=== PATIENT | female | born 1975 | race Caucasian/White ===

== ENCOUNTER 2020-12-21 23:19 | Emergency (ER) | payer BC, SELFPAY ==
[2020-07-26 07:43] VITALS: BMI 29.2
[2020-12-21 23:19] VITALS: BP 137/84; PULSE 83; RESP 16; TEMP 36.4; O2SAT 99; BMI 29.2
--- NOTE | 2020-12-21 23:33 | RAD_ITS ---
STUDY: X-RAY - RIGHT ANKLE REASON FOR EXAM: Female, 45 years old. injury and pain TECHNIQUE: 3 view(s) of the ankle. COMPARISON: x-ray tibia and fibula. FINDINGS: Normal visualized distal tibia and fibula. Normal medial and lateral malleoli. Normal tibiotalar articulation. As seen on oblique view, there is suggestion of mild widening of the distal tibial-fibular interspace, which may represent a sprain of interosseous alignment.. Normal visualized talus and calcaneus. The visualized subtalar, talonavicular, calcaneocuboid and tarsal articulations are normal. There is nonspecific soft tissue swelling. There are there is soft tissue prominence overlying the anterior aspect of the tibiotalar articulation, suggesting a joint effusion. RAD/Ankle min 3 Views IMPRESSION: Suspected joint effusion. Suspect a sprain of the interosseous ligament, with minimal widening of the distal tibial-fibular interspace. No demonstrated fracture or dislocation. Electronically Signed: Aldo Loza MD at 0:20 EDT , Service support ,
--- NOTE | 2020-12-21 23:41 | RAD_ITS ---
STUDY: X-RAY - RIGHT TIBIA AND FIBULA REASON FOR EXAM: Female, 45 years old. injury and pain TECHNIQUE: 2 view(s) of the tibia and fibula were obtained. COMPARISON: X-ray ankle. FINDINGS: Normal visualized tibia. There are faint oblique curvilinear lucencies overlying the proximal most fibular shaft. Finding is suspicious for a nondisplaced, possibly incomplete fracture. There is soft tissue swelling around the ankle. RAD/Tibia & Fibula 2 Views IMPRESSION: Suspect an acute, traumatic, nondisplaced, incomplete fracture of the proximal fibular shaft. No evidence for tibial fracture. Electronically Signed: Aldo Loza MD at 0:22 EDT , Service support ,
[2020-12-21] MEDS: HYDROcodone Bitartrate/Apap 5/325 Tablet PO (23:50)
--- NOTE | 2020-12-22 00:01 | EX.ED.DYSGE1 ---
HPI History of Present Illness Chief Complaint: Lower Extremity Injury Informant: patient and spouse/S.O. Narrative Narrative: 45-year-old female states that she was dancing by the fire when she sustained a fall. She sustained a inversion injury to the right ankle. She denies any other injuries. PFSH PFSH Home Medications hydrocodone-acetaminophen 1 tab PO Q6H PRN PRN 3 Days #12 tablet 12/22/20 [Rx Last Taken Unknown] Allergy/AdvReac Type Severity Reaction Status Date / Time No Known Allergies Allergy Verified 12/21/20 23:21 no surgical history (Noncontributory) Social History (Updated 12/22/20 @ 00:[address] Dante Amor, DO) household members: significant other Smoking Status: Former smoker ROS ROS ED Constitutional Constitutional ED: Denies chills or weight loss Eyes Eyes: Denies change in vision or diplopia ENT ENT ED: Denies ear pain, rhinorrhea or sore throat Cardiovascular Cardiovascular: Denies chest pain, orthopnea, palpitations or racing heartbeat Respiratory/Chest Respiratory/Chest: Denies cough, dyspnea or orthopnea Gastrointestinal Gastrointestinal: Denies abdominal pain, diarrhea, nausea or vomiting Genitourinary Genitourinary ED: Denies dysuria, hematuria or urinary frequency Musculoskeletal Musculoskeletal: Reports other Details: Right ankle injury ; Denies arthralgias or myalgias Integumentary Denies abscess or rash Neurologic Neurologic: Denies headache(s) or weakness Psychiatric Psychiatric: Denies anxiety, depression, suicidal ideation or suicidal thoughts Endocrine Endocrinology: Denies polydipsia, polyphagia or polyuria Allergic/Immunologic Allergic/Immunologic ED: Denies mouth swelling, tongue swelling or urticaria EXAM Physical Exam Const Vital Signs: 12/21/20 23:19 Temperature 97.6 F L Temperature Source Temporal Pulse Rate 83 Respiratory Rate 16 Blood Pressure 137/84 H Blood Pressure Mean 101 Pulse Ox 99 Oxygen Delivery Method Room Air Positive well nourished and well developed General Appearance ED: well developed HEENT Reports normocephalic, head/scalp atraumatic and moist mucous membranes Eyes PERRL and EOMs intact bilaterally Neck no lymphadenopathy, supple and no JVD Resp normal respiratory effort and clear to auscultation bilaterally Cardio regular rate, regular rhythm and no murmurs GI normal to inspection, nondistended, normoactive bowel sounds and non-tender Palpation: soft Back/Spine no CVA tenderness and normal ROM Extremity Extremity Narrative: Patient has swelling and tenderness to the right ankle over the lateral malleolus. No fifth metatarsal pain. She does have tenderness over the fibular head General Extremety ED: Negative for edema General Extremity: Negative for edema Neuro oriented x3 and CN's II-XII intact bilaterally Sensorium / Orientation: alert Motor Exam: strength 5/5 throughout Psych mental status grossly normal Mood & Affect: Negative for depressed or tearful Skin no rashes or lesions noted and no wounds MDM MDM MDM Narrative Medical decision making narrative: With the fibular head tenderness and apparent ankle injury concern for Maisonneuve fracture was raised. My interpretation of the plain films of the ankle and the tibia and fibula is acute fracture of the proximal fibula. Soft tissue swelling noted. The patient will be placed in a boot orthosis and given crutches. Pain medicine was also administered here in the department and will be prescribed. She will be referred to orthopedics for further management. Radiography Diagnostic Testing: Radiology Impression Ankle X-Ray 12/21/20 23:33 IMPRESSION: Suspected joint effusion. Suspect a sprain of the interosseous ligament, with minimal widening of the distal tibial-fibular interspace. No demonstrated fracture or dislocation. Electronically Signed: Aldo Loza MD at 0:20 EDT , Service support , Tibia/Fibula X-Ray 12/21/20 23:41 IMPRESSION: Suspect an acute, traumatic, nondisplaced, incomplete fracture of the proximal fibular shaft. No evidence for tibial fracture. Electronically Signed: Aldo Loza MD at 0:22 EDT , Service support , Discharge Plan Triage Chief Complaint: Lower Extremity Injury ED Provider: Dante Amor Dx/Rx/DC Orders Clinical Impression: Closed Maisonneuve fracture of fibula Instructions: ED Fracture, Lower Extremity Prescriptions: New hydrocodone-acetaminophen [hydrocodone-acetaminophen] 1 TABLET tablet 1 tab PO Q6H PRN PRN (Reason: Pain) 3 Days Qty: 12 RF: 0 Primary Care Provider: Kelly Cadet Referrals: Kelly Cadet DO [Primary Care Provider] - Xavier Rincon MD [STAFF PHYSICIAN] - As soon as possible Disposition Disposition: Home, self care
[2020-12-22 01:03] VITALS: BP 132/60; PULSE 78; RESP 18; O2SAT 96
== END 2020-12-22 01:04 | disposition home or self-care (01) ==
LOC: ED 12-22 00:15
PROVIDERS: Emergency Provider Emergency Medicine; PCP Family Medicine
DX: S82.861A Displaced Maisonneuve's fracture of right leg, initial encounter for closed fracture (principal); W19.XXXA Unspecified fall, initial encounter; Z87.891 Personal history of nicotine dependence
CPT/HCPCS: 73590; 73610; 99284